=== PATIENT | male | born 1990 | race American Indian/Alaskan Native ===

== ENCOUNTER 2017-08-04 18:26 | Emergency (ER) | payer MEDICAID, OTHER, SELFPAY ==
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
--- NOTE | 2017-08-08 07:04 | EKG ---
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 [facility] /[id number]
== END 2017-08-04 20:39 | disposition home or self-care (01) ==
LOC: DL.ED 18:26
DX: R07.9 Chest pain, unspecified (principal); V89.2XXA Person injured in unspecified motor-vehicle accident, traffic, initial encounter; Y92.410 Unspecified street and highway as the place of occurrence of the external cause
CPT/HCPCS: 71045; 80305; 93005; 99284

== ENCOUNTER 2018-04-09 07:28 | Emergency (ER) | payer OTHER ==
--- NOTE | 2018-04-09 07:39 | EDM.PDOC ---
ED HPI GENERAL MEDICAL PROBLEM - General Chief Complaint: Genitourinary Problem Stated Complaint: PEEING BLOOD, PAIN LEFT SIDE Time Seen by Provider: 04/09/18 07:36 Source of Information: Reports: Patient, Old Records, RN, RN Notes Reviewed History Limitations: Reports: No Limitations - History of Present Illness INITIAL COMMENTS - FREE TEXT/NARRATIVE: Onset of blood tinged urine yesterday with left flank, LLQ abdominal pain and left groin pain. Now pain free, but more blood in urine. Pt states he had a similar thing in 2011 that was Dx'd as a UTI. Denies flank pain, fever, or chills. Denies injury, fever, chills, N/V, testicular/scrotal pain, pain with BMs, or any Hx of high risk sexual behaviors. Pt states the pain has not been severe, and was relieved with OTC Ibuprofen last evening. Onset: Gradual Onset Date: 04/08/18 Duration: Constant Location: Reports: Abdomen, Pelvis Quality: Reports: Other (Denies pain at this time.) Severity: Moderate Improves with: Reports: None Worsens with: Reports: None Associated Symptoms: Reports: No Other Symptoms Treatments STAFF ASSISTANT: Reports: NSAIDS - Related Data Allergies Allergy/AdvReac Type Severity Reaction Status Date / Time No Known Allergies Allergy Verified 04/09/18 07:42 Home Meds: Home Meds . [No Known Home Meds] 08/04/17 [History] Past Medical History Genitourinary History: Reports: Other (See Below) (UTI x1) Social & Family History - Family History Family Medical History: Noncontributory - Tobacco Use Smoking Status *Q: Never Smoker - Recreational Drug Use Recreational Drug Use: No - Sexual History Sexual History: Reports: Sexually Active, Single Partner - Living Situation & Occupation Living situation: Reports: with Family Occupation: Employed ED ROS GENERAL - Review of Systems Review Of Systems: ROS reveals no pertinent complaints other than HPI. ED EXAM, RENAL/ - Physical Exam Exam: See Below Exam Limited By: No Limitations General Appearance: Alert, WD/WN, No Apparent Distress Nose: Normal Inspection, Normal Mucosa, No Blood Throat/Mouth: Normal Inspection, Normal Voice, No Airway Compromise Head: Atraumatic, Normocephalic Neck: Normal Inspection Respiratory/Chest: No Respiratory Distress, Lungs Clear, Normal Breath Sounds, No Accessory Muscle Use, Chest Non-Tender Cardiovascular: Regular Rate, Rhythm GI/Abdominal: Normal Bowel Sounds, Soft, No Distention, No Mass, Tender (mild tenderness to palpation at LLQ). No: Guarding, Rigid, Rebound (Male) Exam: Deferred Rectal (Males) Exam: Deferred Back Exam: Full Range of Motion, CVA Tenderness (L) (mild). No: CVA Tenderness (R), Paraspinal Tenderness, Vertebral Tenderness Extremities: Normal Inspection Neurological: Alert, Oriented, Normal Gait, No Motor/Sensory Deficits Psychiatric: Normal Affect, Normal Mood Skin Exam: Warm, Dry, Intact, Normal Color, No Rash Course - Vital Signs Last Recorded V/S: Last Vital Signs Temp 36.6 C 04/09/18 07:31 Pulse 92 04/09/18 07:31 Resp 16 04/09/18 07:31 BP 120/69 04/09/18 07:31 Pulse Ox 99 04/09/18 07:31 - Orders/Labs/Meds Orders: Active Orders 24 hr Category Date Time Status Abdomen Pelvis wo Cont [CT] Urgent Exams 04/09/18 07:42 Taken CHLAMYDIA AND GONORRHEA BY TMA Routine Lab 04/09/18 07:31 Received CULTURE URINE [RM] Stat Lab 04/09/18 07:31 Received Phenazopyridine [Urinary Pain Relief] Med 04/09/18 08:53 Once 190 mg PO ONETIME ONE traMADol [Ultram] Med 04/09/18 08:54 Once 50 mg PO ONETIME ONE Medication Orders Phenazopyridine HCl (Urinary Pain Relief) 190 mg PO ONETIME ONE Stop: 04/09/18 08:54 Tramadol HCl (Ultram) 50 mg PO ONETIME ONE Stop: 04/09/18 08:55 Labs: Laboratory Tests 04/09/18 04/09/18 04/09/18 Range/Units 07:31 08:12 08:12 WBC 7.8 (5.0-10.0) 10^3/uL RBC 5.27 (4.6-6.2) 10^6/uL Hgb 14.8 (14.0-18.0) g/dL Hct 44.6 (40.0-54.0) % MCV 84.6 (80-100) fL MCH 28.1 (27.0-34.0) pg MCHC 33.2 (33.0-35.0) g/dL Plt Count 266 (150-450) 10^3/uL Neut % (Auto) 66.6 (42.2-75.2) % Lymph % (Auto) 23.1 (20.5-50.1) % Dale % (Auto) 7.8 (2-8) % Eos % (Auto) 2.2 (1.0-3.0) % Baso % (Auto) 0.3 (0.0-1.0) % Sodium 139 (135-145) mmol/L Potassium 4.4 (3.6-5.0) mmol/L Chloride 102 (101-111) mmol/L Carbon Dioxide 28.0 (21.0-31.0) mmol/L Anion Gap 13.4 BUN 15 (7-18) mg/dL Creatinine 1.0 (0.6-1.3) mg/dL Est Cr Clr Drug Dosing 101.90 mL/min Estimated GFR (MDRD) > 60 BUN/Creatinine Ratio 15.00 Glucose 96 (74-105) mg/dL Calcium 9.2 (8.4-10.2) mg/dl Total Bilirubin 0.9 (0.2-1.0) mg/dL AST 23 (10-42) IU/L ALT 22 (10-60) IU/L Alkaline Phosphatase 91 (42-121) IU/L Total Protein 7.8 (6.7-8.2) g/dl Albumin 4.4 (3.2-5.5) g/dl Globulin 3.4 Albumin/Globulin Ratio 1.29 Urine Color Red (YELLOW) Urine Appearance Turbid (CLEAR) Urine pH 8.5 (5.0-9.0) Ur Specific [place] 1.015 (1.005-1.030) Urine Protein >=300 H (NEGATIVE) Urine Glucose (UA) 100 H (NEGATIVE) Urine Ketones 40 H (NEGATIVE) Urine Occult Blood Large H (NEGATIVE) Urine Nitrite Positive H (NEGATIVE) Urine Bilirubin Large H (NEGATIVE) Urine Urobilinogen >=8.0 H (0.2-1.0) mg/dL Ur Leukocyte Esterase Large H (NEGATIVE) Urine RBC Packed H /HPF Urine WBC >100 H (0-5/HPF) /HPF Ur Epithelial Cells Rare /HPF Urine Bacteria Moderate H (0-FEW/HPF) /HPF Meds: Medications Generic Name Dose Route Start Last Admin Trade Name Joe PRN Reason Stop Dose Admin Phenazopyridine HCl 190 mg 04/09/18 08:53 Urinary Pain Relief PO 04/09/18 08:54 ONETIME ONE Tramadol HCl 50 mg 04/09/18 08:54 Ultram PO 04/09/18 08:55 ONETIME ONE Discontinued Medications Generic Name Dose Route Start Last Admin Trade Name Joe PRN Reason Stop Dose Admin Azithromycin 1,000 mg 04/09/18 08:38 04/09/18 08:51 Zithromax PO 04/09/18 08:39 1,000 mg ONETIME ONE Administration Ceftriaxone Sodium 1 gm/ 0 gm 04/09/18 08:37 04/09/18 08:49 Lidocaine HCl 2.1 ml IM 04/09/18 08:38 2.1 inj ONETIME ONE Administration - Radiology Interpretation Free Text/Narrative:: CT Abd/Pelvis: no kidney stones; see Rad. report. Departure - Departure Time of Disposition: 08:56 Disposition: Home, Self-Care 01 Condition: Good Clinical Impression: Hematuria due to acute cystitis UTI (urinary tract infection) Qualifiers: Urinary tract infection type: acute cystitis Hematuria presence: with hematuria Qualified Code(s): N30.01 - Acute cystitis with hematuria - Discharge Information *PRESCRIPTION DRUG MONITORING PROGRAM REVIEWED*: No *COPY OF PRESCRIPTION DRUG MONITORING REPORT IN PATIENT KAEL: No Instructions: Urinary Tract Infection, Adult, Hematuria, Adult Forms: ED Department Discharge Additional Instructions: Rx: Cipro 500mg Rx: Pyridium 200mg *Causes orange colored urine* Drink plenty of water. Follow up in clinic in 2 to 3 days for urine recheck. Return to ER if worse at any time. - My Orders Last 24 Hours: My Active Orders 04/09/18 07:31 CHLAMYDIA AND GONORRHEA BY TMA Routine CULTURE URINE [RM] Stat 04/09/18 07:42 Abdomen Pelvis wo Cont [CT] Urgent 04/09/18 08:53 Phenazopyridine [Urinary Pain Relief] 190 mg PO ONETIME ONE 04/09/18 08:54 traMADol [Ultram] 50 mg PO ONETIME ONE - Assessment/Plan Last 24 Hours: My Active Orders 04/09/18 07:31 CHLAMYDIA AND GONORRHEA BY TMA Routine CULTURE URINE [RM] Stat 04/09/18 07:42 Abdomen Pelvis wo Cont [CT] Urgent 04/09/18 08:53 Phenazopyridine [Urinary Pain Relief] 190 mg PO ONETIME ONE 04/09/18 08:54 traMADol [Ultram] 50 mg PO ONETIME ONE
[2018-04-09 08:37] LABS: ANION GAP 13.4; CHLORIDE,CL 102 mmol/L (101-111); SODIUM,NA 139 mmol/L (135-145)
[2018-04-09] MEDS ORDERED: cefTRIAXone 1 GM, Lidocaine 1% 2.1 ML IM ONE ×2 (08:37)
[2018-04-09] MEDS ORDERED: Azithromycin 250 MG Tab PO ONE (08:38)
[2018-04-09] MEDS ORDERED: Phenazopyridine 95 MG Tab PO ONE (08:53)
[2018-04-09] MEDS ORDERED: traMADol 50 MG Tab PO ONE (08:54)
== END 2018-04-09 09:14 | disposition home or self-care (01) ==
LOC: DL.ED 07:28
DX: N30.01 Acute cystitis with hematuria (principal)
CPT/HCPCS: 36415; 74176; 80053; 81001; 85025; 87086; 87491; 87591; 96372; 99284; A9270; J0696

== ENCOUNTER 2018-11-25 14:00 | Emergency (ER) | payer SELFPAY ==
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
== END 2018-11-25 15:50 | disposition left against medical advice (07) ==
LOC: DL.ED 14:00
DX: Z53.21 Procedure and treatment not carried out due to patient leaving prior to being seen by health care provider (principal)
CPT/HCPCS: 99283-25

== ENCOUNTER 2019-06-27 14:17 | Emergency (ER) | payer OTHER ==
--- NOTE | 2019-06-27 14:28 | EDM.PDOC ---
ED HPI GENERAL MEDICAL PROBLEM - General Chief Complaint: ENT Problem Stated Complaint: PINK EYE Time Seen by Provider: 06/27/19 14:28 Source of Information: Reports: Patient, RN, RN Notes Reviewed History Limitations: Reports: No Limitations - History of Present Illness INITIAL COMMENTS - FREE TEXT/NARRATIVE: Pt presents to ER from home by POV with c/o 2 days duration of right eye irritation. He denies injury or foreign body to the eye. Pt states he woke 2 days ago with a minor right eye irritation and yellow matting. He reports increased drainage and redness, and today has some mild redness to the right eyelid as well. Denies fever, headache, or visual change. He admits to light sensitivity to the right eye. Onset: Gradual Duration: Day(s): (2) Location: Reports: Other (Right eye) Quality: Reports: Other (Irritation) Severity: Moderate Improves with: Reports: None Worsens with: Reports: None Associated Symptoms: Reports: No Other Symptoms Right Eye Pain Score (Numeric/FACES): 4 - Related Data Allergies Allergy/AdvReac Type Severity Reaction Status Date / Time Penicillins Allergy Cannot Verified 06/27/19 14:33 Remember Home Meds: Home Meds . [No Known Home Meds] 08/04/17 [History] Past Medical History - Past Health History Medical/Surgical History: Denies Medical/Surgical History Genitourinary History: Reports: Other (See Below) (UTI x1) Social & Family History - Family History Family Medical History: Noncontributory - Caffeine Use Caffeine Use: Reports: Soda - Sexual History Sexual History: Reports: Sexually Active, Single Partner - Living Situation & Occupation Living situation: Reports: with Family Occupation: Employed ED ROS GENERAL - Review of Systems Review Of Systems: Comprehensive ROS is negative, except as noted in HPI. ED EXAM GENERAL W FULL EYE - Physical Exam Exam: See Below Exam Limited By: No Limitations General Appearance: Alert, WD/WN, No Apparent Distress Eye Exam: Left Eye: Normal Inspection, Bilateral Eye: EOMI, PERRL Eyelids: Right: Erythema, Lid Everted for Exam, Left: Normal Appearance Conjunctiva & Sclera: Right: Discharge (yellow), Injected, Left: Normal Appearance Cornea Exam: Bilateral: Normal Appearance Extraocular Movements: Bilateral: Intact Pupils: Normal Accommodation Pupillary Size: Bilateral: 3 mm Pupillary Reaction: Bilateral: Brisk Anterior Chamber: Bilateral: Normal Appearance Ears: Normal External Exam Nose: Normal Inspection, Normal Mucosa, No Blood Throat/Mouth: Normal Inspection, Normal Lips, Normal Oropharynx, Normal Voice, No Airway Compromise Head: Atraumatic, Normocephalic Neck: Normal Inspection, Supple, Non-Tender, Full Range of Motion. No: Lymphadenopathy (L), Lymphadenopathy (R) Respiratory/Chest: No Respiratory Distress Neurological: Alert, Oriented, CN II-XII Intact, Normal Cognition, No Motor/ Sensory Deficits Psychiatric: Normal Affect, Normal Mood Skin Exam: Warm, Dry, Intact Course - Vital Signs Last Recorded V/S: Last Vital Signs Temp 96.6 F 06/27/19 14:33 Pulse 117 H 06/27/19 14:33 Resp 16 06/27/19 14:33 BP 121/102 H 06/27/19 14:33 Pulse Ox 100 06/27/19 14:33 - Orders/Labs/Meds Meds: Medications Discontinued Medications Generic Name Dose Route Start Last Admin Trade Name Joe PRN Reason Stop Dose Admin Clindamycin HCl 300 mg 06/27/19 14:37 Cleocin PO 06/27/19 14:38 ONETIME ONE Gentamicin Sulfate 1 gm 06/27/19 14:30 Gentak 0.3% Ophth Oint EYERT 06/27/19 14:31 ONETIME ONE Gentamicin Sulfate 1 ml 06/27/19 14:50 Garamycin 0.3% Ophth Soln EYELF 06/27/19 14:51 ONETIME ONE Gentamicin Sulfate Confirm 06/27/19 14:51 06/27/19 14:54 Garamycin 0.3% Ophth Soln Administered 06/27/19 14:52 Not Given Dose 5 ml .ROUTE .STK-MED ONE Departure - Departure Time of Disposition: 14:47 Disposition: Home, Self-Care 01 Condition: Good Clinical Impression: Acute bacterial conjunctivitis of right eye, Elevated blood pressure reading without diagnosis of hypertension - Discharge Information *PRESCRIPTION DRUG MONITORING PROGRAM REVIEWED*: No *COPY OF PRESCRIPTION DRUG MONITORING REPORT IN PATIENT KAEL: No Instructions: Bacterial Conjunctivitis Forms: ED Department Discharge Additional Instructions: Rx: Clindamycin 300mg Gentamicin Ophthalmic Solution 0.3% Do not rub your eye. Follow up in clinic within the next 3 to 5 days for eye and blood pressure recheck. Sepsis Event Note - Focused Exam Vital Signs: Vital Signs Temp Pulse Resp BP Pulse Ox 06/27/19 14:33 96.6 F 117 H 16 121/102 H 100 Date Exam was Performed: 06/27/19 Time Exam was Performed: 14:56
[2019-06-27] MEDS ORDERED: Clindamycin HCl 150 MG Cap PO ONE (14:37)
[2019-06-27] MEDS ORDERED: Gentamicin 0.3% Ophth Soln 5 ML Bottle EYELF ONE (14:50)
[2019-06-27] MEDS ORDERED: Gentamicin 0.3% Ophth Soln 5 ML Bottle ONE (14:51)
== END 2019-06-27 15:24 | disposition home or self-care (01) ==
LOC: DL.ED 14:17
DX: H10.33 Unspecified acute conjunctivitis, bilateral (principal); R03.0 Elevated blood-pressure reading, without diagnosis of hypertension
CPT/HCPCS: 99283; A9270

== ENCOUNTER 2024-04-27 15:44 | Emergency (ER) | payer OTHER ==
[2024-04-27] MEDS: Doxycycline Monohydrate 100 MG Cap PO ONE (20:42)
[2024-04-27] MEDS: Bacitracin Oint 1 GM U/D Packet TOP ONE (20:42)
== END 2024-04-27 20:50 | disposition home or self-care (01) ==
LOC: DL.ED 15:44
DX: L03.011 Cellulitis of right finger (principal); L03.012 Cellulitis of left finger; F17.210 Nicotine dependence, cigarettes, uncomplicated; Z88.0 Allergy status to penicillin
CPT/HCPCS: 10060; 99283; A9270